=== PATIENT | female | born 1950 | race Caucasian/White ===

== ENCOUNTER 2016-04-02 06:02 | Inpatient (IN) | payer OTHER, BC ==
[2016-04-02] MEDS ORDERED: IPRATROPIUM/ALBUTEROL 3 ML DEYVIAL ONE (06:15)
[2016-04-02] MEDS ORDERED: IPRATROPIUM/ALBUTEROL 3 ML DEYVIAL IH ONE (06:21)
--- NOTE | 2016-04-02 06:24 | EDPHY ---
H & P Source: Patient Exam Limitations: No limitations Time Seen by Provider: 04/02/16 06:13 HPI/ROS: HPI The patient presents with shortness of breath, cough for the last 6 days, getting progressively worse. The patient is visiting from [place] and since she arrived here she has had mild shortness of breath which she attributed to the altitude. However over the last few days she has developed progressive cough with wheezing. The cough is dry and associated with mild sore throat. She has been using her Advair and albuterol with some improvement in her symptoms. However, last night she was unable to sleep because she felt so short of breath. She is having some midsternal sharp chest pain with deep inspiration. She is staying with family friends and 2 of them have tested positive for influenza. The patient did have a flu shot this year. She says she last took prednisone for asthma about 3 weeks ago. REVIEW OF SYSTEMS Constitutional: No fever, no chills. Eyes: No discharge. ENT: No sore throat. Cardiovascular: No chest pain, no palpitations. Respiratory: See HPI Gastrointestinal: No abdominal pain, no vomiting. Genitourinary: No hematuria. Musculoskeletal: No back pain. Skin: No rashes. Neurological: No headache. PMHx: CLL, has not undergone chemotherapy yet, asthma, history of pulmonary embolism in 2010 related to an orthopedic ankle operation Soc Hx: Visiting friends from [place] PHYSICAL General Appearance: Alert, no distress Eyes: Pupils equal and round no pallor or injection ENT, Mouth: Mucous membranes moist Respiratory: Slightly tachypneic, no retractions, prolonged I to E time with slight wheeze Cardiovascular: Regular rate and rhythm Gastrointestinal: Abdomen is soft and non-tender, no masses, bowel sounds normal Neurological: A&O, moves all extremities Skin: Warm and dry, no rashes Musculoskeletal: Neck is supple non tender Extremities: symmetrical, full range of motion Psychiatric: Patient is oriented X 3, there is no agitation (Chitra Dubois) Constitutional: Initial Vital Signs O2 Sat (%) 98 04/02/16 06:22 O2 Delivery Mode Nasal Cannula O2 (L/minute) 3 Allergies/Adverse Reactions: clindamycin Allergy (Verified 04/02/16 06:22) Penicillins Allergy (Verified 04/02/16 06:22) Sulfa (Sulfonamide Antibiotics) Allergy (Verified 04/02/16 06:22) Home Medications: Medication Instructions Recorded Advair 250/50 (*) 1 puffs IH BID 04/02/16 Aspirin EC [Aspirin EC 81 mg (*)] 81 mg PO DAILY 04/02/16 Azelastine HCl [Azelastine HCl] 2 sprays EACHNARE BID PRN 04/02/16 Cholecalciferol Vit D3 [Vitamin D3 2,000 units PO DAILY 04/02/16 (*)] Cyanocobalamin [Vitamin B12 (*)] 2,000 mcg PO DAILY 04/02/16 Fluticasone Nasal [Flonase Nasal 2 sprays NASAL DAILY PRN 04/02/16 [place] (RX)] Folic Acid [Folic Acid 1 MG (*)] 1 mg PO BID 04/02/16 [place]/Supplements -Info Only 1 ea PO DAILY 04/02/16 Levothyroxine [Synthroid 100 mcg 100 mcg PO DAILY06 04/02/16 (*)] Liothyronine Sodium [LIOTHYRONINE 5 mcg PO DAILY 04/02/16 SODIUM] Loratadine [Claritin 10 mg] 10 mg PO DAILY PRN 04/02/16 Losartan/Hydrochlorothiazide 1 each PO DAILY 04/02/16 [Losartan-Hctz 50-12.5 mg Tab] Montelukast Sodium [Singulair 10 10 mg PO DAILY@1800 04/02/16 mg (*)] Pantoprazole Sodium [Protonix 40mg 40 mg PO DAILY@1730 04/02/16 (*)] Sertraline HCl [Zoloft 100mg (*)] 200 mg PO DAILY 04/02/16 Simvastatin [Zocor] 20 mg PO HS 04/02/16 Tretinoin/Emollient Base 1 luli TP DAILY 04/02/16 [Tretinoin 0.05% Emollient Crm] Medical Decision Making - Diagnostics EKG Interpretation: 12-lead EKG interpreted by me; official reading is in trace master. My interpretation is sinus at rate of 105 with nonspecific T-wave flattening. (Jos Linda) Imaging: Chest x-ray viewed independently by myself at 7:20 a.m. shows bronchitis changes otherwise negative. No pneumothorax or infiltrate or pneumonia. CT pulmonary arteriography reviewed with Dr. Dereje Leary at 9:14 a.m. shows CLL but no evidence of pulmonary thromboembolic disease. (Jos Linda) ED Course/Re-evaluation: 7:00 a.m.- The patient is currently receiving albuterol nebulized solution. She is feeling better now with this. Labs will be checked including influenza screen, I have also ordered a chest x-ray. She will be signed out to the oncoming provider Dr. Jos Linda. (Chitra Dubois) Care of the patient was assumed at 7:00 a.m.. She is examined at this time. Plan per Dr. Dubois is medical evaluation in ED including RAD treatment, testing including ddimer and influenza and chest x-ray, disposition depending on results and workup and response to treatment. Physical exam performed by myself at this time: She has bilateral wheezes and crackles greater on the right than the left. She is tachypneic and her breathing appears mildly labored. Her past medical history is personally reviewed by myself and significantly includes CLL with chemotherapy starting next week, history of pulmonary embolism in 2009, asthma diagnosed 2 years ago. She has never been a smoker. Social history includes a who was diagnosed 2 days ago with influenza and a daughter who was diagnosed 4 days ago with influenza. Plan for steroids, multiple nebulizer treatments, supplemental oxygen. She is noted to be significantly hypoxemic on arrival with oxygen saturations in the 80s. Chest x-ray and influenza testing, D-dimer. Vital signs reviewed by myself at 6 20 5:00 a.m. temperature 37.2degrees, heart rate 100, respiratory rate 22, blood pressure 121/72, oxygen saturation 85% on ambient air. 743: Influenza A positive, still requiring nasal cannula oxygen to keep her saturations in the 90s. Continued albuterol nebulizer, oral dose Tamiflu 75 mg. Results discussed with the patient and family. Admit for hypoxia. 755: D-dimer 2.3, history of pulmonary embolism, CT angiography discussed and consented. 804: Discussed with Venkatesh Raymundo who will admit, EACU if CT PE negative. Multiple albuterol nebulizers continued in emergency department. The patient does have SIRS criteria but she does not have sepsis, as she does not have evidence or suspicion by myself for an acute bacterial infection. Broad-spectrum antibiotics and blood cultures not clinically indicated for influenza and reactive airway disease. (Jos Linda) Differential Diagnosis: This is a 66-year-old female with asthma, CLL, remote history of pulmonary embolism non anticoagulation currently who presents from home with cough, shortness of breath, wheeze. Differential diagnosis includes asthma with exacerbation, viral URI, influenza, pneumonia, bronchitis, less likely pulmonary embolism. (Chitra Dubois) Critical Care Time: Critical care time spent by me, Dr. Linda, exclusively with the care of this patient was 30 minutes, exclusive of PA or RETAIL BUSINESS DEVELOPMENT MANAGER time and exclusive of separate procedures. The organ system at risk was pulmonary and I ordered nebulized albuterol treatments, oral Tamiflu, discussion with outside solar sales consultant hospitalist, supplemental oxygen; to stabilize the patient and prevent worsening of the patient's condition. (Jos Linda) - Data Points Laboratory Results: Laboratory Results 04/02/16 07:00 04/02/16 07:10 04/02/16 04/02/16 07:10 07:00 WBC 11.16 H 10^3/uL (3.80-9.50) RBC 3.32 L 10^6/uL (4.18-5.33) Hgb 9.8 L g/dL (12.6-16.3) Hct 32.2 L % (38.0-47.0) MCV 97.0 fL (81.5-99.8) MCH 29.5 pg (27.9-34.1) MCHC 30.4 L g/dL (32.4-36.7) RDW 20.2 H % (11.5-15.2) Plt Count 102 L 10^3/uL (150-400) MPV 11.0 fL (8.7-11.7) Neut % (Auto) 11.2 L % (39.3-74.2) Lymph % (Auto) 83.5 H % (15.0-45.0) O'Brien % (Auto) 3.1 L % (4.5-13.0) Eos % (Auto) 1.6 % (0.6-7.6) Baso % (Auto) 0.3 % (0.3-1.7) Nucleat RBC Rel Count 0.3 H % (0.0-0.2) Absolute Neuts (auto) 1.25 L 10^3/uL (1.70-6.50) Absolute Lymphs (auto) 9.32 H 10^3/uL (1.00-3.00) Absolute Monos (auto) 0.35 10^3/uL (0.30-0.80) Absolute Eos (auto) 0.18 10^3/uL (0.03-0.40) Absolute Basos (auto) 0.03 10^3/uL (0.02-0.10) Absolute Nucleated RBC 0.03 H 10^3/uL (0-0.01) Immature Gran % 0.3 % (0.0-1.1) Seg Neutrophils % 8 % Band Neutrophils % 1 % Lymphocytes % 89 % Monocytes % 1 % Eosinophils % 1 % Immature Gran # 0.03 10^3/uL (0.00-0.10) Absolute Seg Neuts 0.89 L 10^/uL (1.70-6.50) Absolute Band Neuts 0.11 10^3/uL (0.00-0.70) Absolute Lymphocytes 9.93 H 10^3/uL (1.00-3.00) Absolute Monocytes 0.11 L 10^3/uL (0.30-0.80) Absolute Eosinophils 0.11 10^3/uL (0.03-0.40) Atypical Lymphocytes 3+ H Platelet Estimate DECREASED L (ADEQ) Polychromasia 1+ H Elliptocytes 1+ H Smear Review By Kyra OSORIO MD D-Dimer 2.33 H ug/mLFEU (0.00-0.50) Sodium 141 mEq/L (134-144) Potassium 3.7 mEq/L (3.5-5.2) Chloride 101 mEq/L (97-110) Carbon Dioxide 28 mEq/l (22-31) Anion Gap 12 mEq/L (8-16) BUN 11 mg/dL (7-23) Creatinine 1.0 mg/dL (0.6-1.0) Estimated GFR 55 Glucose 128 H mg/dL (70-100) Calcium 8.6 mg/dL (8.5-10.4) Total Bilirubin 0.9 mg/dL (0.1-1.4) AST 42 IU/L (14-46) ALT 32 IU/L (9-52) Alkaline Phosphatase 79 IU/L (38-126) Total Protein 6.1 L g/dL (6.3-8.2) Albumin 3.8 g/dL (3.5-5.0) Influenza Typ A,B (DFA) POSITIVE FOR FLU A H (NEGATIVE) Medications Given: Discontinued Medications Acetaminophen (Tylenol) 650 mg PO EDNOW ONE Stop: 04/02/16 08:54 Last Admin: 04/02/16 09:07 Dose: 650 mg Albuterol (Proventil Neb) 9 ml IH EDNOW ONE Stop: 04/02/16 06:54 Last Admin: 04/02/16 07:13 Dose: 9 ml Albuterol (Proventil Neb) 9 ml IH EDNOW ONE Stop: 04/02/16 07:43 Last Admin: 04/02/16 08:10 Dose: 9 ml Albuterol/Ipratropium (Duoneb) 3 ml IH EDNOW ONE Stop: 04/02/16 06:22 Last Admin: 04/02/16 06:28 Dose: 3 ml Sodium Chloride (Ns) 1,000 mls @ 0 mls/hr IV ONCE ONE PRN Reason: Wide Open Stop: 04/02/16 08:53 Last Admin: 04/02/16 09:06 Dose: 1,000 mls Oseltamivir Phosphate (Tamiflu) 75 mg PO EDNOW ONE Stop: 04/02/16 07:43 Last Admin: 04/02/16 08:11 Dose: 75 mg Prednisone (Prednisone) 60 mg PO EDNOW ONE Stop: 04/02/16 06:44 Last Admin: 04/02/16 06:45 Dose: 60 mg Departure - Departure Disposition: [facility] Acute Clinical Impression: Exacerbation of asthma, Influenza, Hypoxemia Condition: Fair
[2016-04-02] MEDS ORDERED: ALBUTEROL 3 ML DEYVIAL ONE (06:35)
[2016-04-02] MEDS ORDERED: predniSONE 20 MG TAB PO ONE (06:43)
[2016-04-02] MEDS ORDERED: ALBUTEROL 3 ML DEYVIAL IH ONE ×2 (06:53→07:42)
[2016-04-02 07:16] LABS: % IMMATURE GRANULYOCYTES 0.3 % (0.0-1.1); ABSOLUTE IMMATURE GRANULOCYTES 0.03 10^3/uL (0.00-0.10); ABSOLUTE NRBC COUNT 0.03 10^3/uL (0-0.01); ADD DIFF? NO; ADD MORPH? YES; ADD SCAN? YES; ATYPICAL LYMPHOCYTE FLAG 0 (0-99); FRAGMENT RBC FLAG 20 (0-99); HEMATOCRIT 32.2 % (38.0-47.0); HEMOGLOBIN 9.8 g/dL (12.6-16.3); LEFT SHIFT FLG 0 (0-99); LIPEMIA HEMOLYSIS FLAG 80 (0-99); MEAN CELL HEMOGLOBIN 29.5 pg (27.9-34.1); MEAN CELL HEMOGLOBIN CONCENTR. 30.4 g/dL (32.4-36.7); NRBC-AUTO% 0.3 % (0.0-0.2); PLATELET CLUMPS FLAG 0 (0-99); PLATELET COUNT 102 10^3/uL (150-400); RED BLOOD CELL COUNT 3.32 10^6/uL (4.18-5.33)
[2016-04-02 07:23] LABS: RED CELL DISTRIBUTION WIDTH 20.2 % (11.5-15.2)
--- NOTE | 2016-04-02 07:37 | CPEKG ---
Heart Rate: 105 RR Interval: 571 P-R Interval: 172 QRSD Interval: 88 QT Interval: 324 QTC Interval: 429 P [place]: 16 QRS [place]: 65 T Wave [place]: -2 EKG Severity - BORDERLINE ECG - EKG Impression: SINUS TACHYCARDIA EKG Impression: BORDERLINE T ABNORMALITIES, DIFFUSE LEADS Electronically Signed By: Jos Linda 02-Apr-2016 07:36:56
[2016-04-02 07:39] LABS: ALANINE AMINOTRANSFERASE 32 IU/L (9-52); ALBUMIN 3.8 g/dL (3.5-5.0); ALKALINE PHOSPHATASE 79 IU/L (38-126); ANION GAP 12 mEq/L (8-16); ASPARTATE AMINOTRANSFERASE 42 IU/L (14-46); BILIRUBIN,TOTAL 0.9 mg/dL (0.1-1.4); CALCIUM 8.6 mg/dL (8.5-10.4); CARBON DIOXIDE 28 mEq/l (22-31); CHLORIDE 101 mEq/L (97-110); GLOMERULAR FILTRATION RATE 55; GLUCOSE 128 mg/dL (70-100); POTASSIUM 3.7 mEq/L (3.5-5.2); SODIUM 141 mEq/L (134-144); TOTAL PROTEIN 6.1 g/dL (6.3-8.2)
[2016-04-02] MEDS ORDERED: OSELTAMIVIR PHOSPHATE 75 MG CAP PO ONE (07:42)
[2016-04-02 07:44] LABS: SCAN POSITIVE
[2016-04-02 07:55] LABS: PLATELET ESTIMATE DECREASED (ADEQ)
[2016-04-02 07:56] LABS: ELLIPTOCYTES 1+; POLYCHROMASIA 1+
[2016-04-02] MEDS ORDERED: IOPAMIDOL (ISOVUE 370) 75 ML BTL IV ONE ×2 (08:06→08:39)
--- NOTE | 2016-04-02 08:15 | DX ---
PA and Lateral Chest History: Cough in a 66-year-old female; no previous studies are available for comparison area Findings: The heart and mediastinal contours are normal. Pulmonary vascularity is normal. There is c entral peribronchial thickening. There are no alveolar opacities seen to suggest pneumonia. Impression: Findings consistent with airways disease are noted.
[2016-04-02] MEDS ORDERED: NS 1,000 ML IV ONE (08:52)
[2016-04-02] MEDS ORDERED: ACETAMINOPHEN 325 MG TAB PO ONE (08:53)
--- NOTE | 2016-04-02 10:23 | CT ---
CT Pulmonary Angiogram Clinical Indications: Shortness of breath in a 66-year-old female with a history of previous PE, an elevated D-dimer and a diagnosis of CLL. Technique: Thinly collimated multidetector helical CT imaging was performed through the chest follow ing intravenous contrast administration. The initial bolus timing resulted in a nondiagnostic study s o repeat contrast administration and rescan was performed. Total contrast dose is 147 mL of Isovue-37 0. The images were obtained at 4 mm thickness and reconstructed at 1.5 mm thickness. Sagittal and cor onal reconstructions were performed. The examination is reviewed on the workstation by the interpreti ng physician at multiple window/level settings. Dose reduction techniques were utilized. Findings: Chest: No focal pulmonary consolidation is identified. There is a 5 mm noncalcified pulmonary nodule identified in the right upper lobe on image 100 of series 11. Heart size is normal. No pericardial or pleural effusions are seen. Enlarged hilar and mediastinal lymph nodes are seen and there is also axillary adenopathy consistent with the diagnosis of CLL. Splenomegaly is noted. Adenopathy is seen i n the retroperitoneum in the upper abdomen. CT Pulmonary Angiogram: The pulmonary arterial system is well opacified. No intraluminal filling d efects are seen to suggest acute or chronic thrombopulmonary embolic disease. No vascular malformatio ns are seen. The thoracic aorta has a normal contour without evidence of aneurysm or dissection. Impression: 1. No evidence of thrombopulmonary embolic disease. 2. 5 mm noncalcified pulmonary nodule right upper lobe. This patient has presumably had previous stud ies and these could be obtained to evaluate for stability of this probably benign nodule. 3. Adenopathy and splenomegaly consistent with the diagnosis of CLL. 4. See above report for additional findings. Results discussed with Dr. Linda from the Emergency Department at 0925 hours.
[2016-04-02] MEDS ORDERED: MAG HYDROX/AL HYDROX/SIMETH 30 ML UDCUP PO PRN (10:44)
--- NOTE | 2016-04-02 11:32 | GHP ---
[f rep st] HISTORY AND PHYSICAL DATE OF ADMISSION: 04/02/2016 CHIEF COMPLAINT: Shortness of breath. HISTORY OF PRESENT ILLNESS: A 66-year-old female with a 5 to 6-year history of reactive airway disea se without a history of tobacco use who presents with a 6-day history of increasing shortness of ed th and cough. She has also felt hot and cold, achy, and perhaps has had a fever during this period o f time. She was seen in the emergency department and found to be hypoxic on room air and wheezing. She was treated with bronchodilators, tested positive for influenza, given Tamiflu 75 mg, and persist ed with room air hypoxemia. She was thus admitted for an asthma exacerbation and influenza infection . She has a 5 to 6-year history of reactive airway disease which began following a pulmonary embolus th at occurred following surgery on her left foot. She also carries a diagnosis of chronic lymphocytic leukemia which has been untreated, although she is currently scheduled for chemotherapy to begin in 4 days in [place]. She denies chest pain, nausea, vomiting or diarrhea. There has been no rash. PAST MEDICAL HISTORY: 1. CLL diagnosed in 2009. No chemotherapy has been given at this time and she is scheduled to start her first dose of chemotherapy in 4 days in [place]. 2. Reactive airway disease. As noted above, this dates to approximately 2009 when she had a pulmona ry embolus. 3. Pulmonary embolus in 2009 treated with 1 year of anticoagulation. PAST SURGICAL HISTORY: Tonsillectomy at age 5, wisdom teeth removed at age 17, tubal ligation at age 39, right shoulder surgery in 2010 and 2000, left knee surgery in 2002, left foot surgeries in 2004, 2006, 2008 and 2009. Cataract removal in both eyes with new lenses in 2014. ALLERGIES: Listed to clindamycin, penicillin, sulfa drugs. REVIEW OF SYSTEMS: In general, she has been achy, feeling hot and cold, as noted above. There has b een no nausea or vomiting. No complaints of chest pain, orthopnea, or PND. She has had a cough but it has been nonproductive. She has a history of reflux and heartburn for which she takes a regular P PI medication with good relief. There is no bowel disorder or dysuria complaints. Skin is normal wi thout complaints of a recent rash. Joints she describes herself as having osteoarthritis in all of h er joints and prominently in her left foot, and says that many of her joints ache frequently without recent inflammation. SOCIAL HISTORY: She is and traveling here from [place], [place], which is a town north of [facility]. She was here visiting friends and is accompanied by her . Tobacco: None. Alcohol: Rare . Drugs: None. FAMILY HISTORY: Negative for reactive airway disease, coronary artery disease, breast cancer and col on cancer. PHYSICAL EXAMINATION: GENERAL: This is a pleasant alert female whom I am seeing on the floor. At t his time, she is feeling much improved. VITAL SIGNS: Normal except for mild sinus tachycardia. She is hypoxic on room air and has maintained adequate oxygenation on supplemental oxygen. She had a lo w-grade temperature at 99.2. HEENT: Normal. Tongue and buccal mucosa without lesions. Mucous memb ranes are moist. NECK: Supple without meningismus. LUNGS: Rhonchi and rales in the left lower lob e, rhonchi and decrease in the right lower lobe. There is no chest wall tenderness or splinting. HE ART: Singular S1 and S2. No murmur, gallop or rub. ABDOMEN: Flat. Normoactive bowel sounds. No masses, tenderness or organomegaly. EXTREMITIES: No edema, cyanosis or clubbing. PULSES: 2+ DP, P T, femoral and radials. SKIN: Without rashes. JOINTS: No inflammation, swellings or effusion. NE UROLOGIC: Oriented x3. Calm and pleasant female. Cranial nerves 2 through 12 intact to specific te sting. LABORATORY DATA: WBC elevated at 11,000, hemoglobin slightly low at 9.8, platelet count low at 102,0 00. The differential shows a low neutrophil count and a high lymphocyte count at 83.5%. Her D-dimer was 2.3. Chemistry panel is entirely normal. Serology is positive for influenza A. Chest x-ray shows prominence of pulmonary vasculature and bronchial thickening without definitive inf iltrate. Heart is of normal size. This is interpreted by me on the PACS system. ECG shows sinus ta chycardia at approximately 105. There are nonspecific ST-T wave changes diffusely without any acute changes. CTA of the chest reviewed on the PACS system by me is without signs of pulmonary embolus. ASSESSMENT: 1. Acute influenza, bronchitis and possible signs of a clinical pneumonia with rales in the left low er lobe. She has currently received 1 dose of Tamiflu 75 mg and the resulting followup doses will be reduced for renal function to 30 mg b.i.d. 2. Sepsis with leukocytosis, tachypnea, tachycardia and hypoxemia, probable infectious source is inf luenza A by throat swab. 3. Reactive airway disease both by history and currently active at this time. She is receiving bron chodilator treatments along with treatments for Tamiflu, and we will continue these. 4. Chronic lymphocytic leukemia. This has previously been without treatment. She currently shows p redominance of lymphocytes and is scheduled to begin chemotherapy in [place] soon. The chronic lymphoc ytic leukemia at this time is characterized by an anemia and a thrombocytopenia with a predominance o f lymphocytes on the white cell differential. We will follow the anemia and thrombocytopenia closely . 5. Deep venous thrombosis prophylaxis will be with SCDs and early ambulation. In addition, I will a dd Lovenox at 30 mg daily. I hope to be able to stop the Lovenox soon, but due to her prior history of a pulmonary embolus, I believe both pharmacologic and SCDs along with early ambulation is prudent. DISPOSITION: The patient has been admitted to observation. We will assess her oxygenation and funct ion within 24 hours and perhaps reevaluate. She is having a significant exacerbation of reactive air way disease secondary to her influenza infection and this may require further inpatient treatment. TIME: This admission required 65 minutes. CODE STATUS: Full, and her is POA. /[id number]/MODL
[2016-04-02] MEDS: FLUTICASONE NASAL 120 SPRAYS/16 GM MDI EACHNARE SCH ×2 (12:28→21:47)
[2016-04-02] MEDS: ASPIRIN EC 81 MG TAB PO SCH (12:29)
[2016-04-02] MEDS: SERTRALINE HCL 100 MG TAB PO SCH ×2 (12:29→12:34)
[2016-04-02] MEDS: LOSARTAN/HCTZ 50/12.5 1 TAB PO SCH ×2 (12:29→12:35)
[2016-04-02] MEDS: LIOTHYRONINE SODIUM 5 MCG TAB PO SCH (12:29)
[2016-04-02] MEDS: LEVOTHYROXINE 100 MCG TAB PO SCH (12:29)
[2016-04-02] MEDS: ALBUTEROL 3 ML DEYVIAL IH PRN (15:34)
[2016-04-02] MEDS: ACETAMINOPHEN 325 MG TAB PO PRN ×2 (15:57→23:15)
[2016-04-02] MEDS: PANTOPRAZOLE SODIUM 40 MG TAB PO SCH (15:57)
[2016-04-02] MEDS: MONTELUKAST SODIUM 10 MG TAB PO SCH (17:35)
[2016-04-02] MEDS: OSELTAMIVIR 6 MG/ML UDSYR PO SCH (17:35)
[2016-04-02] MEDS ORDERED: OSELTAMIVIR PHOSPHATE 75 MG CAP PO SCH (18:00)
[2016-04-02] MEDS ORDERED: NON-FORMULARY NEW DRUG (Simvastatin [Zocor] 20 MG) PO SCH (21:00)
[2016-04-02] MEDS: ATORVASTATIN CALCIUM 10 MG TAB PO SCH (21:12)
[2016-04-02] MEDS: FOLIC ACID 1 MG TAB PO SCH (21:12)
[2016-04-02] MEDS: D5W 1/2 NS W/ 20 KCl/L 1,000 ML IV SCH (21:12)
[2016-04-02] MEDS: CEPACOL LOZENGE PO PRN (22:08)
[2016-04-03] MEDS: ALBUTEROL 3 ML DEYVIAL IH PRN ×2 (00:22→10:01)
[2016-04-03] MEDS: CEPACOL LOZENGE PO PRN (01:48)
[2016-04-03] MEDS: GUAIFENESIN/DM 10 ML UDCUP PO PRN ×4 (01:49→22:08)
[2016-04-03] MEDS: LEVOTHYROXINE 100 MCG TAB PO SCH (04:50)
[2016-04-03] MEDS: KETOROLAC 15 MG/1 ML SDV IVP PRN ×3 (04:50→17:36)
[2016-04-03] MEDS: D5W 1/2 NS W/ 20 KCl/L 1,000 ML IV SCH ×2 (04:57→23:06)
[2016-04-03] MEDS ORDERED: predniSONE 20 MG TAB PO SCH (09:00)
[2016-04-03] MEDS: OSELTAMIVIR 6 MG/ML UDSYR PO SCH ×2 (09:37→17:37)
[2016-04-03] MEDS: CYANO/VITAMIN B12 1000 MCG TAB PO SCH (09:38)
[2016-04-03] MEDS: SERTRALINE HCL 100 MG TAB PO SCH (09:39)
[2016-04-03] MEDS: LIOTHYRONINE SODIUM 5 MCG TAB PO SCH (09:39)
[2016-04-03] MEDS: ASPIRIN EC 81 MG TAB PO SCH (09:40)
[2016-04-03] MEDS: CHOLECALCIFEROL VIT D3 1,000 UNITS TAB PO SCH (09:40)
[2016-04-03] MEDS: LOSARTAN/HCTZ 50/12.5 1 TAB PO SCH (09:40)
[2016-04-03] MEDS: FOLIC ACID 1 MG TAB PO SCH ×2 (09:40→21:34)
[2016-04-03] MEDS: [UNRECOGNIZED DRUG - OTHER] TP SCH (09:41)
[2016-04-03] MEDS: FLUTICASONE NASAL 120 SPRAYS/16 GM MDI EACHNARE SCH ×2 (09:41→22:13)
[2016-04-03] MEDS: TRETINOIN TP SCH (09:41)
[2016-04-03] MEDS: ACETAMINOPHEN 325 MG TAB PO PRN ×2 (11:05→17:37)
[2016-04-03] MEDS ORDERED: ALBUTEROL 3 ML DEYVIAL IH PRN (12:38)
--- NOTE | 2016-04-03 15:05 | HOSPPROG ---
Hospitalist Progress Note Assessment/Plan: 66-year-old female admitted with shortness of breath wheezing and influenza positive throat swab. She is currently under treatment with Tamiflu and bronchodilators along with steroids. She continues to be hypoxic on room air to keep neck and with some wheezing. -acute influenza bronchitis and possible pneumonia -acute respiratory failure with hypoxemia, hypoxemia persistent on room air and continues to require supplemental oxygen -sepsis secondary to influenza infection with tachypnea tachycardia and positive flu swab -history of reactive airway disease -history of CLL untreated and scheduled for to begin treatment. Plan: Patient will be transferred to a [facility] floor and we will continue her pulmonary treatment antibiotics bronchodilators and steroids. She is slowly improving. I have discussed the plan with her Alfonso and with the patient for approximately 30 minutes. Subjective: Continues to feel weak short of breath and frequent coughing. No chest pain abdominal pain nausea or vomiting her appetite is decreased but she continues to eat. Objective: Vital Signs Temp Pulse Resp BP Pulse Ox 36.9 C 98 20 142/70 H 83 L 04/03/16 08:00 04/03/16 11:21 04/03/16 11:21 04/03/16 09:40 04/03/16 11:21 - Time Spent With Patient Time Spent with Patient: greater than 35 minutes Time Spent with Patient: Greater than 35 minutes spent on this patients care, greater than 50% of time spent counseling, educating, and coordinating care regarding the above mentioned plan. - Physical Exam Constitutional: uncomfortable Eyes: PERRL Ears, Nose, Mouth, Throat: moist mucous membranes, hearing normal Cardiovascular: regular rate and rhythym, systolic murmur, tachycardia, other ( JVD is normal. There is no peripheral edema.) Respiratory: inspiratory crackles, bronchial breath sounds, respiratory distress , rhonchi Gastrointestinal: normoactive bowel sounds, soft, non-tender abdomen Genitourinary: no bladder fullness Skin: warm Musculoskeletal: generalized weakness Neurologic: AAOx3, CN II-XII Intact Psychiatric: interacting appropriately ICD10 Worksheet Patient Problems: Problems Problem Status Diagnosed Exacerbation of asthma Acute Hypoxemia Acute Influenza Acute
[2016-04-03] MEDS: ALBUTEROL 3 ML DEYVIAL IH SCH ×2 (17:02→20:36)
[2016-04-03] MEDS: PANTOPRAZOLE SODIUM 40 MG TAB PO SCH (17:37)
[2016-04-03] MEDS: MONTELUKAST SODIUM 10 MG TAB PO SCH (17:52)
[2016-04-03] MEDS ORDERED: OXYMETAZOLINE 30 ML NASAL SPRAY EACHNARE PRN (20:57)
[2016-04-03] MEDS ORDERED: ZOLPIDEM TARTRATE 5 MG TAB PO PRN (20:57)
[2016-04-03] MEDS: ATORVASTATIN CALCIUM 10 MG TAB PO SCH (21:34)
[2016-04-03] MEDS: ONDANSETRON DISINTEGRATING 4 MG TAB PO PRN (21:38)
[2016-04-03] MEDS ORDERED: PROMETHAZINE HCL 25 MG/ML INJ IVP ONE (23:00)
[2016-04-03] MEDS ORDERED: HYDROCODONE/APAP 5/325 TAB PO ONE (23:00)
[2016-04-04] MEDS: ACETAMINOPHEN 325 MG TAB PO PRN ×2 (00:38→08:04)
[2016-04-04 05:34] LABS: ABSOLUTE NRBC COUNT 0.03 10^3/uL (0-0.01); ADD MORPH? YES; ADD SCAN? YES; ATYPICAL LYMPHOCYTE FLAG 20 (0-99); FRAGMENT RBC FLAG 0 (0-99); HEMATOCRIT 28.3 % (38.0-47.0); HEMOGLOBIN 8.5 g/dL (12.6-16.3); LEFT SHIFT FLG 20 (0-99); LIPEMIA HEMOLYSIS FLAG 80 (0-99); MEAN CELL HEMOGLOBIN 29.5 pg (27.9-34.1); MEAN CELL VOLUME 98.3 fL (81.5-99.8); MEAN PLATELET VOLUME 10.1 fL (8.7-11.7); NRBC-AUTO% 0.1 % (0.0-0.2); PLATELET CLUMPS FLAG 0 (0-99); PLATELET COUNT 83 10^3/uL (150-400); RED BLOOD CELL COUNT 2.88 10^6/uL (4.18-5.33)
[2016-04-04 05:39] LABS: BASE EXCESS -5.4 mEq/L (-2.5-2.5); BICARBONATE 20 mEq/L (22-26); MEASURED OXYGEN SATURATION 93 % (92-95); PCO2 39 mmHg (34-38); PO2 77 mmHg (65-75); TCO2 21 mEq/L (23-27)
[2016-04-04 05:45] LABS: RED CELL DISTRIBUTION WIDTH 20.1 % (11.5-15.2)
[2016-04-04 05:48] LABS: ANION GAP 10 mEq/L (8-16); CALCIUM 7.4 mg/dL (8.5-10.4); CARBON DIOXIDE 22 mEq/l (22-31); CHLORIDE 108 mEq/L (97-110); CREATININE 0.9 mg/dL (0.6-1.0); GLOMERULAR FILTRATION RATE > 60; GLUCOSE 110 mg/dL (70-100); SODIUM 140 mEq/L (134-144)
[2016-04-04] MEDS: LEVOTHYROXINE 100 MCG TAB PO SCH (05:49)
[2016-04-04] MEDS ORDERED: methylPREDNISolone SOD SUCC 125 MG/2 ML VIAL IVP SCH (06:00)
[2016-04-04 06:11] LABS: ADD DIFF? YES; SCAN POSITIVE
[2016-04-04 06:14] LABS: PLATELET ESTIMATE DECREASED (ADEQ)
[2016-04-04 06:15] LABS: ELLIPTOCYTES 1+; HYPOCHROMIA 1+; POLYCHROMASIA 1+
[2016-04-04] MEDS: ALBUTEROL 3 ML DEYVIAL IH SCH ×4 (06:15→21:01)
[2016-04-04] MEDS: CHOLECALCIFEROL VIT D3 1,000 UNITS TAB PO SCH (08:02)
[2016-04-04] MEDS: ASPIRIN EC 81 MG TAB PO SCH (08:03)
[2016-04-04] MEDS: SERTRALINE HCL 100 MG TAB PO SCH (08:03)
[2016-04-04] MEDS: CYANO/VITAMIN B12 1000 MCG TAB PO SCH (08:05)
[2016-04-04] MEDS: FOLIC ACID 1 MG TAB PO SCH ×2 (08:06→21:01)
[2016-04-04] MEDS: LOSARTAN/HCTZ 50/12.5 1 TAB PO SCH (08:06)
--- NOTE | 2016-04-04 08:07 | DX ---
Portable Chest, 00:29 Clinical Indications: Fever, increasing O2 demands, CLL Comparison: April 02, 2016 Findings: The patient is newly rotated toward the right. Oxygen tubing overlies the chest. There is no obvious focal consolidation, infiltrate or pleural effusion. Stable left upper quadrant soft tissu e density suggests splenomegaly. Impression: No pneumonia identified.
--- NOTE | 2016-04-04 08:26 | CPEKG ---
Heart Rate: 98 RR Interval: 612 P-R Interval: 164 QRSD Interval: 90 QT Interval: 316 QTC Interval: 404 P [place]: 52 QRS [place]: 9 T Wave [place]: 38 EKG Severity - NORMAL ECG - EKG Impression: SINUS RHYTHM Electronically Signed By: Zoltan Eid 05-Apr-2016 13:44:14
[2016-04-04] MEDS: OSELTAMIVIR 6 MG/ML UDSYR PO SCH (09:00)
[2016-04-04] MEDS: [UNRECOGNIZED DRUG - OTHER] TP SCH (09:02)
[2016-04-04] MEDS: TRETINOIN TP SCH (09:02)
[2016-04-04] MEDS ORDERED: OSELTAMIVIR 6 MG/ML UDSYR PO ONE (09:30)
[2016-04-04] MEDS: LIOTHYRONINE SODIUM 5 MCG TAB PO SCH (09:31)
[2016-04-04] MEDS: AZITHROMYCIN IV 500 MG in D5W 250 ML IV SCH (09:31)
[2016-04-04] MEDS: FLUTICASONE NASAL 120 SPRAYS/16 GM MDI EACHNARE SCH ×2 (09:45→21:01)
[2016-04-04] MEDS: methylPREDNISolone SOD SUCC 40 MG/ML VIAL IVP SCH ×3 (13:42→23:37)
[2016-04-04] MEDS: KETOROLAC 15 MG/1 ML SDV IVP PRN (14:18)
--- NOTE | 2016-04-04 14:33 | GCON ---
[f rep st] CONSULTATION [employer] OPERATIONS AGENT CONSULTATION DATE OF CONSULTATION: 04/04/2016 REASON FOR ADMISSION: 1. Respiratory failure. 2. Reactive airways disease. 3. Chronic lymphocytic leukemia. 4. Influenza. HISTORY OF PRESENT ILLNESS: The patient is a 66-year-old white female with a past medical history of CLL and reactive airway disease with pulmonary embolus in 2009. She presents with complaints of kim athlessness. She is visiting [place] from [place], [place]. She began feeling hot, achy, as well as h aving fever. She was seen in the emergency room, tested positive for influenza, and started on Tamif karla. She was admitted secondary to hypoxemia. She was initially admitted to the floor, was subsequen tly transferred to the Intensive Care Unit today for worsening breathlessness. She feels markedly be tter since being transferred. PAST MEDICAL HISTORY: Significant for CLL, reactive airways disease, pulmonary embolus. ALLERGIES: Clindamycin, penicillin, sulfa. SOCIAL HISTORY: A lifelong never-smoker. She drinks 3 glasses of wine per day. She is . 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 She has lived in [place] most of her life. PAST SURGICAL HISTORY: She has had foot surgeries, knee surgery, shoulder surgery, cataract removal, tubal ligation, tonsillectomy. PHYSICAL EXAM: VITAL SIGNS: Blood pressure is122/58, pulse is 99, respirations 25, temperature 39.2 , oxygen saturation 96% on 8 L OxyMask. GENERAL: She is a mildly overweight, but very pleasant, 66- year-old white female, who is resting comfortably on supplemental oxygen. HEENT: Eyes are PERRL, EO LA. Throat shows no erythema or tonsillar hypertrophy. NECK: Supple. No cervical adenopathy. HEA RT: Regular rate and rhythm with a 2/6 systolic murmur at the left sternal border without radiation. LUNGS: Show few scattered rhonchi, but otherwise clear. ABDOMEN: Soft, nontender. Bowel sounds are present in all 4 quadrants. EXTREMITIES: Show no clubbing, cyanosis or edema. LABORATORIES: White count is 21,000, hemoglobin 8.5, hematocrit 28, platelet count is 83. Sodium 140, potassium 5.0, chloride 108, CO2 of 22, BUN is 18, creatinine 0.9, glucose is 110. Serology is positive for influenza A. Arterial blood gas: pH 7.32, pCO2 of 39, PO2 77, bicarb 21, oxygen saturation 93%. Chest x-ray dated 04/04/[address] angiogram of the chest shows no evidence of PE. There is a 5 mm noncalcified pulmonary nodule in the right upper lobe. Lungs are otherwise clear. IMPRESSION: 1. Influenza A. 2. Reactive airways disease/asthma with acute exacerbation. 3. History of chronic lymphocytic leukemia. 4. History of pulmonary embolus. RECOMMENDATIONS: 1. Agree with current bronchodilator treatment. 2. Agree with current IV steroids for anti-inflammatory. 3. Wean FiO2 as tolerated. 4. DVT and PE prophylaxis. 5. Stress ulcer prophylaxis. 6. Out of bed to chair. 7. Early ambulation. Thank you very much. /[id number]/MODL
--- NOTE | 2016-04-04 16:01 | HOSPPROG ---
Hospitalist Progress Note Assessment/Plan: 66-year-old female admitted with shortness of breath wheezing and influenza positive throat swab. She is currently under treatment with Tamiflu and bronchodilators along with steroids. She continues to be hypoxic on room air. During the last 12 hours the patient became more short of breath and more hypoxic and was transferred to the step-down unit. Review of a new chest x-ray shows more bronchial markings consistent with acute bronchitis. Case has been discussed with Pulmonary and Pulmonary has consulted. We added IV steroids and azithromycin. -acute influenza bronchitis and possible pneumonia. Worsening hypoxemia in the last 12 hours with the addition now of IV steroids and azithromycin. -acute respiratory failure with hypoxemia, hypoxemia persistent on room air and continues to require supplemental oxygen -influenza a infection currently under treatment with Tamiflu. -sepsis secondary to influenza infection with tachypnea tachycardia and positive flu swab -history of reactive airway disease -history of CLL untreated and scheduled for to begin treatment. Plan: Patient has been transferred to the step-down unit. She is improving with supplemental oxygen and increase in bronchodilators and azithromycin. Subjective: Patient is short of breath and mildly anxious. She denies chest pain, but admits to 2 episodes of vomiting yesterday evening. She has no abdominal pain at this time Objective: Vital Signs Temp Pulse Resp BP Pulse Ox 39.2 C H 99 25 H 122/58 H 96 04/04/16 12:00 04/04/16 12:00 04/04/16 12:00 04/04/16 12:00 04/04/16 12:00 Laboratory Results 04/04/16 05:20 04/04/16 05:20 04/03/16 04/04/16 04/05/16 05:59 05:59 05:59 Intake Total 758 Balance 758 - Time Spent With Patient Time Spent with Patient: greater than 35 minutes Time Spent with Patient: Greater than 35 minutes spent on this patients care, greater than 50% of time spent counseling, educating, and coordinating care regarding the above mentioned plan. - Physical Exam Constitutional: other (Acutely ill appearing and short of breath.) Eyes: PERRL, anicteric sclera Ears, Nose, Mouth, Throat: moist mucous membranes, hearing normal Cardiovascular: regular rate and rhythym, no murmur, rub, or gallop, tachycardia Respiratory: expiratory wheeze, bronchial breath sounds, respiratory distress, rhonchi Gastrointestinal: normoactive bowel sounds, soft, non-tender abdomen, no palpable masses Genitourinary: no bladder fullness Skin: warm Musculoskeletal: generalized weakness Neurologic: AAOx3, CN II-XII Intact Psychiatric: anxious ICD10 Worksheet Patient Problems: Problems Problem Status Diagnosed Exacerbation of asthma Acute Hypoxemia Acute Influenza Acute
[2016-04-04] MEDS: OSELTAMIVIR PHOSPHATE 75 MG CAP PO SCH (17:15)
[2016-04-04] MEDS: PANTOPRAZOLE SODIUM 40 MG TAB PO SCH (17:15)
[2016-04-04] MEDS: MONTELUKAST SODIUM 10 MG TAB PO SCH (17:15)
[2016-04-04] MEDS: ATORVASTATIN CALCIUM 10 MG TAB PO SCH (21:01)
[2016-04-05] MEDS: KETOROLAC 15 MG/1 ML SDV IVP PRN ×3 (01:52→20:14)
[2016-04-05] MEDS: ALBUTEROL 3 ML DEYVIAL IH SCH ×4 (05:58→22:15)
[2016-04-05] MEDS: LEVOTHYROXINE 100 MCG TAB PO SCH (06:14)
[2016-04-05] MEDS: methylPREDNISolone SOD SUCC 40 MG/ML VIAL IVP SCH ×4 (06:14→23:54)
--- NOTE | 2016-04-05 08:34 | PDINTPN ---
E Commerce Marketing Manager Progress Note Assessment/Plan: Assessment: * Influenza A-cont tamiflu * RAD/Asthma-improved -cont nebs and steroids * H/O PE Plan: Start lovenox Okay for med surg Subjective: Feels much better. Objective: Vital Signs Temp Pulse Resp BP Pulse Ox 36.8 C 80 20 114/73 98 04/05/16 00:00 04/05/16 06:08 04/05/16 06:08 04/05/16 04:00 04/05/16 04:00 Laboratory Results 04/05/16 06:00 04/05/16 06:00 04/04/16 04/05/16 04/06/16 05:59 05:59 05:59 Intake Total 758 6433 Output Total 352 Balance 750 1466 Physical Exam - Physical Exam General Appearance: alert, no apparent distress EENT: PERRL/EOMI, normal ENT inspection, pharynx normal, TMs normal Neck: non-tender, full range of motion, supple, normal inspection Respiratory: prolonged expiration, No respiratory distress, No wheezing Cardiac/Chest: normal peripheral pulses, regular rate, rhythm Abdomen: normal bowel sounds, non-tender, soft Pelvic Exam: deferred Rectal: deferred Skin: normal color, warm/dry Extremities: normal range of motion, non-tender, normal inspection, normal capillary refill ICD10 Worksheet Patient Problems: Problems Problem Status Diagnosed Exacerbation of asthma Acute Hypoxemia Acute Influenza Acute
[2016-04-05 09:19] LABS: % IMMATURE GRANULYOCYTES 0.2 % (0.0-1.1); ABSOLUTE IMMATURE GRANULOCYTES 0.06 10^3/uL (0.00-0.10); ADD DIFF? NO; ADD MORPH? YES; ADD SCAN? YES; ATYPICAL LYMPHOCYTE FLAG 20 (0-99); FRAGMENT RBC FLAG 20 (0-99); HEMATOCRIT 24.6 % (38.0-47.0); HEMOGLOBIN 7.6 g/dL (12.6-16.3); LEFT SHIFT FLG 50 (0-99); LIPEMIA HEMOLYSIS FLAG 80 (0-99); MEAN CELL HEMOGLOBIN 29.7 pg (27.9-34.1); MEAN CELL HEMOGLOBIN CONCENTR. 30.9 g/dL (32.4-36.7); MEAN CELL VOLUME 96.1 fL (81.5-99.8); MEAN PLATELET VOLUME 10.7 fL (8.7-11.7); PLATELET CLUMPS FLAG 10 (0-99); PLATELET COUNT 60 10^3/uL (150-400); RED BLOOD CELL COUNT 2.56 10^6/uL (4.18-5.33)
[2016-04-05 09:26] LABS: RED CELL DISTRIBUTION WIDTH 20.1 % (11.5-15.2)
[2016-04-05] MEDS: AZITHROMYCIN IV 500 MG in D5W 250 ML IV SCH (09:34)
[2016-04-05] MEDS: OSELTAMIVIR PHOSPHATE 75 MG CAP PO SCH ×2 (09:35→18:11)
[2016-04-05] MEDS: CHOLECALCIFEROL VIT D3 1,000 UNITS TAB PO SCH (09:35)
[2016-04-05] MEDS: ASPIRIN EC 81 MG TAB PO SCH (09:35)
[2016-04-05] MEDS: CYANO/VITAMIN B12 1000 MCG TAB PO SCH (09:36)
[2016-04-05] MEDS: LIOTHYRONINE SODIUM 5 MCG TAB PO SCH (09:36)
[2016-04-05] MEDS: LOSARTAN/HCTZ 50/12.5 1 TAB PO SCH (09:36)
[2016-04-05] MEDS: FOLIC ACID 1 MG TAB PO SCH ×2 (09:36→20:14)
[2016-04-05] MEDS: FLUTICASONE NASAL 120 SPRAYS/16 GM MDI EACHNARE SCH ×2 (09:36→20:15)
[2016-04-05] MEDS: SERTRALINE HCL 100 MG TAB PO SCH (09:36)
[2016-04-05] MEDS: [UNRECOGNIZED DRUG - OTHER] TP SCH (09:37)
[2016-04-05] MEDS: TRETINOIN TP SCH (09:37)
[2016-04-05 09:39] LABS: ANION GAP 9 mEq/L (8-16); CALCIUM 7.1 mg/dL (8.5-10.4); CARBON DIOXIDE 19 mEq/l (22-31); CHLORIDE 110 mEq/L (97-110); CREATININE 0.9 mg/dL (0.6-1.0); GLOMERULAR FILTRATION RATE > 60; GLUCOSE 181 mg/dL (70-100); POTASSIUM 4.5 mEq/L (3.5-5.2); SODIUM 138 mEq/L (134-144)
[2016-04-05 09:45] LABS: SCAN POSITIVE
[2016-04-05 09:50] LABS: PLATELET ESTIMATE DECREASED (ADEQ)
[2016-04-05 09:51] LABS: ECHINOCYTES 1+; ELLIPTOCYTES 1+
[2016-04-05] MEDS: ENOXAPARIN 30 MG/0.3 ML SYR SC SCH (10:01)
--- NOTE | 2016-04-05 13:06 | HOSPPROG ---
Hospitalist Progress Note Assessment/Plan: # influenza A/possible bacterial pna - cont tamiflu/azith # RAD/bronchitis - solu-medrol/nebs/singulair # sepsis d/t above - no pressors needed # acute resp failure d/t above - improved today # CLL - has oncologist in [place]; not currently treated but planned to begin soon # worsening leukocytosis - primarily lymphs - likely d/t CLL + acute viral infection # htn: losartan/hctz # anemia/thrombocytopenia: unknown baseline - follow daily # pulm nodule - outpatient f/u # depression: zoloft # FCFT # lovenox ## chart reviewed CXR personally reviewed Subjective: per RN doing better respiratory-melton; per patient still SOB Objective: Vital Signs Temp Pulse Resp BP Pulse Ox 37.1 C 82 18 106/48 L 94 04/05/16 08:00 04/05/16 11:35 04/05/16 11:35 04/05/16 08:00 04/05/16 11:35 Laboratory Results 04/05/16 09:10 04/05/16 09:10 04/04/16 04/05/16 04/06/16 05:59 05:59 05:59 Intake Total 758 3122 Output Total 352 Balance 758 2770 - Physical Exam Constitutional: other (mild distress) Cardiovascular: regular rate and rhythym, no murmur, rub, or gallop Respiratory: other (mild resp distress; diffuse wheezes, rhonchi, no rales) Gastrointestinal: normoactive bowel sounds, soft, non-tender abdomen, no palpable masses ICD10 Worksheet Patient Problems: Problems Problem Status Diagnosed Exacerbation of asthma Acute Hypoxemia Acute Influenza Acute
[2016-04-05] MEDS: PANTOPRAZOLE SODIUM 40 MG TAB PO SCH (18:11)
[2016-04-05] MEDS: MONTELUKAST SODIUM 10 MG TAB PO SCH (18:11)
[2016-04-05] MEDS: ATORVASTATIN CALCIUM 10 MG TAB PO SCH (20:14)
[2016-04-05] MEDS: GUAIFENESIN/DM 10 ML UDCUP PO PRN (23:54)
[2016-04-06] MEDS: D5W 1/2 NS W/ 20 KCl/L 1,000 ML IV SCH (01:52)
[2016-04-06] MEDS: KETOROLAC 15 MG/1 ML SDV IVP PRN ×2 (02:19→08:04)
[2016-04-06 02:44] LABS: ADD MORPH? YES; ATYPICAL LYMPHOCYTE FLAG 40 (0-99); FRAGMENT RBC FLAG 20 (0-99); HEMATOCRIT 25.5 % (38.0-47.0); HEMOGLOBIN 7.6 g/dL (12.6-16.3); LEFT SHIFT FLG 60 (0-99); LIPEMIA HEMOLYSIS FLAG 70 (0-99); MEAN CELL HEMOGLOBIN 28.9 pg (27.9-34.1); MEAN CELL HEMOGLOBIN CONCENTR. 29.8 g/dL (32.4-36.7); MEAN PLATELET VOLUME 10.7 fL (8.7-11.7); PLATELET CLUMPS FLAG 0 (0-99); PLATELET COUNT 74 10^3/uL (150-400); RED BLOOD CELL COUNT 2.63 10^6/uL (4.18-5.33)
[2016-04-06 02:45] LABS: RED CELL DISTRIBUTION WIDTH 20.4 % (11.5-15.2)
[2016-04-06 02:46] LABS: ADD DIFF? YES
[2016-04-06 02:47] LABS: ADD SCAN? YES
[2016-04-06 03:07] LABS: ELLIPTOCYTES 1+; PLATELET ESTIMATE DECREASED (ADEQ)
[2016-04-06 03:11] LABS: SCHISTOCYTES 1+
[2016-04-06 03:28] LABS: ANION GAP 10 mEq/L (8-16); CALCIUM 7.4 mg/dL (8.5-10.4); CARBON DIOXIDE 21 mEq/l (22-31); CHLORIDE 110 mEq/L (97-110); CREATININE 0.8 mg/dL (0.6-1.0); GLOMERULAR FILTRATION RATE > 60; GLUCOSE 130 mg/dL (70-100); POTASSIUM 4.4 mEq/L (3.5-5.2); SODIUM 141 mEq/L (134-144)
[2016-04-06] MEDS: ALBUTEROL 3 ML DEYVIAL IH SCH ×4 (06:15→21:27)
[2016-04-06] MEDS: methylPREDNISolone SOD SUCC 40 MG/ML VIAL IVP SCH (06:30)
[2016-04-06] MEDS: LEVOTHYROXINE 100 MCG TAB PO SCH (06:30)
[2016-04-06] MEDS: OSELTAMIVIR PHOSPHATE 75 MG CAP PO SCH ×2 (07:52→16:53)
[2016-04-06] MEDS: ENOXAPARIN 30 MG/0.3 ML SYR SC SCH (07:52)
[2016-04-06] MEDS: CYANO/VITAMIN B12 1000 MCG TAB PO SCH (07:52)
[2016-04-06] MEDS: AZITHROMYCIN 250 MG TAB PO SCH (07:53)
[2016-04-06] MEDS: ASPIRIN EC 81 MG TAB PO SCH (07:53)
[2016-04-06] MEDS: FLUTICASONE NASAL 120 SPRAYS/16 GM MDI EACHNARE SCH ×2 (07:53→20:10)
[2016-04-06] MEDS: CHOLECALCIFEROL VIT D3 1,000 UNITS TAB PO SCH (07:53)
[2016-04-06] MEDS: [UNRECOGNIZED DRUG - OTHER] TP SCH (07:54)
[2016-04-06] MEDS: TRETINOIN TP SCH (07:54)
[2016-04-06] MEDS: LOSARTAN/HCTZ 50/12.5 1 TAB PO SCH (08:03)
[2016-04-06] MEDS: LIOTHYRONINE SODIUM 5 MCG TAB PO SCH (08:03)
[2016-04-06] MEDS: SERTRALINE HCL 100 MG TAB PO SCH (08:04)
[2016-04-06] MEDS: FOLIC ACID 1 MG TAB PO SCH ×2 (08:05→20:10)
--- NOTE | 2016-04-06 11:09 | HOSPPROG ---
Hospitalist Progress Note Assessment/Plan: # influenza A/possible bacterial pna - cont tamiflu/azith # RAD/bronchitis - solu-medrol/nebs/singulair # sepsis d/t above - no pressors needed # acute resp failure d/t above - improved today but still requiring O2 # CLL - has oncologist in [place]; not currently treated but planned to begin soon - WBC about at her reported baseline # htn: losartan/hctz # anemia/thrombocytopenia: stable; unknown baseline - follow daily # pulm nodule - outpatient f/u # depression: zoloft # FCFT # lovenox ## mod risk Subjective: breathing better; got very SOB after shower Objective: Vital Signs Temp Pulse Resp BP Pulse Ox 36.6 C 84 22 H 137/63 H 100 04/06/16 00:00 04/06/16 00:00 04/06/16 00:00 04/06/16 08:11 04/06/16 00:00 Laboratory Results 04/06/16 02:40 04/06/16 02:40 04/05/16 04/06/16 04/07/16 05:59 05:59 05:59 Intake Total 3122 3658 Output Total 352 2000 Balance 0840 1658 - Physical Exam Constitutional: uncomfortable Cardiovascular: regular rate and rhythym, no murmur, rub, or gallop, systolic murmur Respiratory: other (mild resp distress, expir wheezes, rales, rhonchi) Gastrointestinal: normoactive bowel sounds, soft, non-tender abdomen, no palpable masses ICD10 Worksheet Patient Problems: Problems Problem Status Diagnosed Exacerbation of asthma Acute Hypoxemia Acute Influenza Acute
[2016-04-06] MEDS: predniSONE 20 MG TAB PO SCH (12:42)
[2016-04-06] MEDS: HYDROCODONE/APAP 5/325 TAB PO PRN (13:34)
[2016-04-06] MEDS: GUAIFENESIN/DM 10 ML UDCUP PO PRN ×3 (16:06→23:58)
[2016-04-06] MEDS: MONTELUKAST SODIUM 10 MG TAB PO SCH (16:53)
[2016-04-06] MEDS: PANTOPRAZOLE SODIUM 40 MG TAB PO SCH (16:53)
[2016-04-06] MEDS: ATORVASTATIN CALCIUM 10 MG TAB PO SCH (20:10)
[2016-04-07] MEDS: LORazepam 0.5 MG TAB PO PRN ×2 (00:25→21:02)
[2016-04-07] MEDS: LEVOTHYROXINE 100 MCG TAB PO SCH (05:35)
[2016-04-07 05:49] LABS: ABSOLUTE NRBC COUNT 0.04 10^3/uL (0-0.01); ADD MORPH? YES; FRAGMENT RBC FLAG 20 (0-99); HEMATOCRIT 25.4 % (38.0-47.0); HEMOGLOBIN 7.5 g/dL (12.6-16.3); LEFT SHIFT FLG 20 (0-99); LIPEMIA HEMOLYSIS FLAG 70 (0-99); MEAN CELL HEMOGLOBIN CONCENTR. 29.5 g/dL (32.4-36.7); MEAN CELL VOLUME 98.1 fL (81.5-99.8); MEAN PLATELET VOLUME 11.6 fL (8.7-11.7); NRBC-AUTO% 0.1 % (0.0-0.2); PLATELET CLUMPS FLAG 0 (0-99); PLATELET COUNT 101 10^3/uL (150-400); RED BLOOD CELL COUNT 2.59 10^6/uL (4.18-5.33)
[2016-04-07 05:50] LABS: RED CELL DISTRIBUTION WIDTH 20.5 % (11.5-15.2)
[2016-04-07 05:51] LABS: ADD DIFF? YES; ATYPICAL LYMPHOCYTE FLAG 170 (0-99)
[2016-04-07 05:53] LABS: ADD SCAN? YES
[2016-04-07 06:07] LABS: ANION GAP 7 mEq/L (8-16); CALCIUM 8.1 mg/dL (8.5-10.4); CARBON DIOXIDE 22 mEq/l (22-31); CHLORIDE 113 mEq/L (97-110); CREATININE 0.9 mg/dL (0.6-1.0); GLOMERULAR FILTRATION RATE > 60; GLUCOSE 92 mg/dL (70-100); POTASSIUM 4.6 mEq/L (3.5-5.2); SODIUM 142 mEq/L (134-144)
[2016-04-07] MEDS: ALBUTEROL 3 ML DEYVIAL IH SCH ×4 (06:08→21:30)
[2016-04-07 07:06] LABS: ELLIPTOCYTES 1+; MACROCYTES 2+; PLATELET ESTIMATE DECREASED (ADEQ); SMUDGE CELLS 1+
[2016-04-07] MEDS: predniSONE 20 MG TAB PO SCH (08:50)
[2016-04-07] MEDS: ASPIRIN EC 81 MG TAB PO SCH (08:50)
[2016-04-07] MEDS: FOLIC ACID 1 MG TAB PO SCH ×2 (08:50→21:02)
[2016-04-07] MEDS: SERTRALINE HCL 100 MG TAB PO SCH (08:50)
[2016-04-07] MEDS: CYANO/VITAMIN B12 1000 MCG TAB PO SCH (08:51)
[2016-04-07] MEDS: CHOLECALCIFEROL VIT D3 1,000 UNITS TAB PO SCH (08:51)
[2016-04-07] MEDS: OSELTAMIVIR PHOSPHATE 75 MG CAP PO SCH ×2 (08:51→17:10)
[2016-04-07] MEDS: AZITHROMYCIN 250 MG TAB PO SCH (08:52)
[2016-04-07] MEDS: ENOXAPARIN 30 MG/0.3 ML SYR SC SCH (08:53)
[2016-04-07] MEDS: LOSARTAN/HCTZ 50/12.5 1 TAB PO SCH (09:06)
[2016-04-07] MEDS: LIOTHYRONINE SODIUM 5 MCG TAB PO SCH (09:06)
[2016-04-07] MEDS: GUAIFENESIN/DM 10 ML UDCUP PO PRN ×4 (09:07→21:02)
[2016-04-07] MEDS: ACETAMINOPHEN 325 MG TAB PO PRN (09:07)
[2016-04-07] MEDS: FLUTICASONE NASAL 120 SPRAYS/16 GM MDI EACHNARE SCH ×2 (09:08→21:02)
[2016-04-07] MEDS: [UNRECOGNIZED DRUG - OTHER] TP SCH (09:11)
[2016-04-07] MEDS: TRETINOIN TP SCH (09:11)
--- NOTE | 2016-04-07 12:44 | HOSPPROG ---
Hospitalist Progress Note Assessment/Plan: # influenza A/possible bacterial pna - cont tamiflu/azith - will extend tamiflu course in setting of immunocompromise # RAD/bronchitis - pred/nebs/singulair # panic attack - d/t resp distress and steroids - aativan prn # sepsis d/t above - no pressors needed # acute resp failure d/t above - off O2, still increased WOB # CLL - has oncologist in [place]; not currently treated but planned to begin soon - WBC about at her reported baseline # htn: losartan/hctz # anemia/thrombocytopenia: stable; unknown baseline - follow daily # pulm nodule - outpatient f/u # depression: zoloft # FCFT # lovenox ## mod risk Subjective: panic attack last night; breathing still labored Objective: Vital Signs Temp Pulse Resp BP Pulse Ox 36.8 C 76 22 H 128/66 H 98 04/07/16 08:00 04/07/16 08:00 04/07/16 08:00 04/07/16 08:00 04/07/16 08:00 Laboratory Results 04/07/16 04:55 04/07/16 04:55 04/06/16 04/07/16 04/08/16 05:59 05:59 05:59 Intake Total 3658 400 Output Total 1999 Balance 1658 400 - Physical Exam Constitutional: other (mild distress) Cardiovascular: regular rate and rhythym, no murmur, rub, or gallop, systolic murmur Respiratory: other (mild resp distress, increased WOB; rales, rhonchi, wheezes) ICD10 Worksheet Patient Problems: Problems Problem Status Diagnosed Exacerbation of asthma Acute Hypoxemia Acute Influenza Acute
[2016-04-07] MEDS: PANTOPRAZOLE SODIUM 40 MG TAB PO SCH (17:09)
[2016-04-07] MEDS: MONTELUKAST SODIUM 10 MG TAB PO SCH (17:10)
[2016-04-07] MEDS: ATORVASTATIN CALCIUM 10 MG TAB PO SCH (21:02)
[2016-04-08] MEDS: GUAIFENESIN/DM 10 ML UDCUP PO PRN ×3 (01:26→17:45)
[2016-04-08 05:20] LABS: ABSOLUTE NRBC COUNT 0.06 10^3/uL (0-0.01); ADD DIFF? YES; FRAGMENT RBC FLAG 20 (0-99); HEMATOCRIT 25.5 % (38.0-47.0); HEMOGLOBIN 7.5 g/dL (12.6-16.3); LEFT SHIFT FLG 20 (0-99); LIPEMIA HEMOLYSIS FLAG 70 (0-99); MEAN CELL HEMOGLOBIN 28.7 pg (27.9-34.1); MEAN CELL HEMOGLOBIN CONCENTR. 29.4 g/dL (32.4-36.7); MEAN CELL VOLUME 97.7 fL (81.5-99.8); MEAN PLATELET VOLUME 10.6 fL (8.7-11.7); NRBC-AUTO% 0.1 % (0.0-0.2); PLATELET CLUMPS FLAG 0 (0-99); PLATELET COUNT 99 10^3/uL (150-400); RED BLOOD CELL COUNT 2.61 10^6/uL (4.18-5.33)
[2016-04-08 05:27] LABS: ADD MORPH? NO; ATYPICAL LYMPHOCYTE FLAG 220 (0-99); RED CELL DISTRIBUTION WIDTH 20.4 % (11.5-15.2)
[2016-04-08 05:30] LABS: ADD SCAN? NO
[2016-04-08] MEDS: LEVOTHYROXINE 100 MCG TAB PO SCH (05:35)
[2016-04-08 05:49] LABS: ANION GAP 9 mEq/L (8-16); CALCIUM 8.2 mg/dL (8.5-10.4); CARBON DIOXIDE 22 mEq/l (22-31); CHLORIDE 111 mEq/L (97-110); CREATININE 0.8 mg/dL (0.6-1.0); GLOMERULAR FILTRATION RATE > 60; GLUCOSE 78 mg/dL (70-100); POTASSIUM 4.3 mEq/L (3.5-5.2); SODIUM 142 mEq/L (134-144)
[2016-04-08 06:11] LABS: ELLIPTOCYTES 1+; HYPOCHROMIA 1+; PLATELET ESTIMATE DECREASED (ADEQ); SMUDGE CELLS 1+
[2016-04-08] MEDS: ALBUTEROL 3 ML DEYVIAL IH SCH ×4 (06:35→21:50)
[2016-04-08] MEDS: ACETAMINOPHEN 325 MG TAB PO PRN ×2 (08:25→17:44)
[2016-04-08] MEDS: OSELTAMIVIR PHOSPHATE 75 MG CAP PO SCH ×2 (08:26→17:44)
[2016-04-08] MEDS: ASPIRIN EC 81 MG TAB PO SCH (09:51)
[2016-04-08] MEDS: predniSONE 20 MG TAB PO SCH (09:51)
[2016-04-08] MEDS: AZITHROMYCIN 250 MG TAB PO SCH (09:51)
[2016-04-08] MEDS: CHOLECALCIFEROL VIT D3 1,000 UNITS TAB PO SCH (09:52)
[2016-04-08] MEDS: LIOTHYRONINE SODIUM 5 MCG TAB PO SCH (09:52)
[2016-04-08] MEDS: FOLIC ACID 1 MG TAB PO SCH ×2 (09:53→20:36)
[2016-04-08] MEDS: CYANO/VITAMIN B12 1000 MCG TAB PO SCH (09:53)
[2016-04-08] MEDS: TRETINOIN TP SCH (09:54)
[2016-04-08] MEDS: SERTRALINE HCL 100 MG TAB PO SCH (09:54)
[2016-04-08] MEDS: [UNRECOGNIZED DRUG - OTHER] TP SCH (09:54)
[2016-04-08] MEDS: LOSARTAN/HCTZ 50/12.5 1 TAB PO SCH (09:54)
[2016-04-08] MEDS: ENOXAPARIN 40 MG/0.4 ML SYR SC SCH (09:56)
[2016-04-08] MEDS: FLUTICASONE NASAL 120 SPRAYS/16 GM MDI EACHNARE SCH ×2 (09:56→20:36)
--- NOTE | 2016-04-08 15:37 | HOSPPROG ---
Hospitalist Progress Note Assessment/Plan: 66-year-old female presents emergency room complaints of shortness of breath. This is my 1st encounter with the patient, chart reviewed pain. Patient discussed with Dr. Alfonso Shaffer. Assessment/Plan: # influenza A/possible bacterial pna - cont tamiflu/azith - will extend tamiflu course in setting of immunocompromise -encouraged ambulation and cough and deep breathe # RAD/bronchitis - pred/nebs/singulair # panic attack - d/t resp distress and steroids - ativan prn # sepsis d/t above - no pressors needed # acute resp failure d/t above - off O2, still increased WOB # CLL - has oncologist in [place]; not currently treated but planned to begin soon - WBC about at her reported baseline # htn: losartan/hctz # anemia/thrombocytopenia: stable; unknown baseline - follow daily # pulm nodule - outpatient f/u # depression: zoloft # FCFT # lovenox Subjective: Feeling better today. Still very weak and tired. Less short of breath today. Objective: Vital Signs Temp Pulse Resp BP Pulse Ox 37.3 C 76 18 113/81 H 95 04/08/16 07:15 04/08/16 10:28 04/08/16 10:28 04/08/16 07:15 04/08/16 10:28 Laboratory Results 04/08/16 04:36 04/08/16 04:36 04/07/16 04/08/16 04/09/16 05:59 05:59 05:59 Intake Total 400 240 Balance 400 240 - Physical Exam Constitutional: appears nourished, not in pain, chronically ill appearing Eyes: PERRL, anicteric sclera, EOMI Ears, Nose, Mouth, Throat: moist mucous membranes, hearing normal, ears appear normal Cardiovascular: regular rate and rhythym, No JVD, No edema Respiratory: no respiratory distress, reduced air movement, rhonchi Gastrointestinal: normoactive bowel sounds, No tenderness, No ascites Skin: warm, normal color, No erythema Musculoskeletal: no joint effusions, pain with ROM, generalized weakness Neurologic: AAOx3 Psychiatric: interacting appropriately, not anxious, not encephalopathic ICD10 Worksheet Patient Problems: Problems Problem Status Diagnosed Exacerbation of asthma Acute Hypoxemia Acute Influenza Acute
[2016-04-08] MEDS: MONTELUKAST SODIUM 10 MG TAB PO SCH (17:44)
[2016-04-08] MEDS: PANTOPRAZOLE SODIUM 40 MG TAB PO SCH (17:44)
[2016-04-08] MEDS: ATORVASTATIN CALCIUM 10 MG TAB PO SCH (20:36)
[2016-04-09] MEDS: LEVOTHYROXINE 100 MCG TAB PO SCH (05:10)
[2016-04-09] MEDS: ALBUTEROL 3 ML DEYVIAL IH SCH ×4 (06:19→21:31)
[2016-04-09] MEDS: HYDROCODONE/APAP 5/325 TAB PO PRN ×2 (07:02→20:52)
--- NOTE | 2016-04-09 07:25 | HOSPPROG ---
Hospitalist Progress Note Assessment/Plan: 66-year-old female PMH RAD, PE approximately 6 years ago after a foot surgery, CLL, presented to emergency room on 04/02 with complaints of shortness of breath , possible fever. Found to have hypoxia on RA, wheezing, positive flu. This is my 1st encounter with the patient, chart reviewed. Assessment/Plan: # influenza A/possible bacterial pna - cont tamiflu/azith - will extend tamiflu course in setting of immunocompromise -encouraged ambulation and cough and deep breathe # RAD/bronchitis - pred/nebs/singulair -will add Mucomyst for productive cough # panic attack - d/t resp distress and steroids - ativan prn # sepsis d/t above - no pressors needed # acute resp failure d/t above - off O2, still increased WOB # CLL - has oncologist in [place]; not currently treated but planned to begin soon - WBC about at her reported baseline # htn: losartan/hctz # anemia/thrombocytopenia: stable; unknown baseline - follow daily # pulm nodule - outpatient f/u # depression: zoloft # FCFT # lovenox Subjective: Continues to feel short of breath and has productive cough. No F/C. Objective: Vital Signs Temp Pulse Resp BP Pulse Ox 98.3 F 68 18 137/71 H 93 04/09/16 00:00 04/09/16 06:19 04/09/16 06:19 04/09/16 00:00 04/09/16 06:19 Laboratory Results 04/08/16 04:36 04/08/16 04:36 04/08/16 04/09/16 04/10/16 05:59 05:59 05:59 Intake Total 240 Balance 240 - Physical Exam Constitutional: appears nourished, not in pain Eyes: PERRL, anicteric sclera Ears, Nose, Mouth, Throat: moist mucous membranes Cardiovascular: regular rate and rhythym, no murmur, rub, or gallop Respiratory: reduced air movement, expiratory wheeze, inspiratory crackles, bronchial breath sounds Gastrointestinal: normoactive bowel sounds, soft, non-tender abdomen Skin: warm, normal color Neurologic: AAOx3 ICD10 Worksheet Patient Problems: Problems Problem Status Diagnosed Exacerbation of asthma Acute Hypoxemia Acute Influenza Acute
[2016-04-09 08:13] LABS: ABSOLUTE NRBC COUNT 0.03 10^3/uL (0-0.01); ADD MORPH? NO; ATYPICAL LYMPHOCYTE FLAG 60 (0-99); FRAGMENT RBC FLAG 40 (0-99); HEMATOCRIT 26.3 % (38.0-47.0); LEFT SHIFT FLG 10 (0-99); LIPEMIA HEMOLYSIS FLAG 80 (0-99); MEAN CELL HEMOGLOBIN 28.7 pg (27.9-34.1); MEAN CELL HEMOGLOBIN CONCENTR. 30.4 g/dL (32.4-36.7); MEAN CELL VOLUME 94.3 fL (81.5-99.8); MEAN PLATELET VOLUME 9.4 fL (8.7-11.7); NRBC-AUTO% 0.1 % (0.0-0.2); PLATELET CLUMPS FLAG 0 (0-99); PLATELET COUNT 111 10^3/uL (150-400); RED BLOOD CELL COUNT 2.79 10^6/uL (4.18-5.33); RED CELL DISTRIBUTION WIDTH 19.9 % (11.5-15.2)
[2016-04-09 08:45] LABS: ADD DIFF? YES
[2016-04-09] MEDS: ENOXAPARIN 40 MG/0.4 ML SYR SC SCH (09:05)
[2016-04-09] MEDS: AZITHROMYCIN 250 MG TAB PO SCH (09:06)
[2016-04-09] MEDS: ASPIRIN EC 81 MG TAB PO SCH (09:06)
[2016-04-09] MEDS: CHOLECALCIFEROL VIT D3 1,000 UNITS TAB PO SCH (09:06)
[2016-04-09] MEDS: LOSARTAN/HCTZ 50/12.5 1 TAB PO SCH (09:06)
[2016-04-09] MEDS: CYANO/VITAMIN B12 1000 MCG TAB PO SCH (09:06)
[2016-04-09] MEDS: LIOTHYRONINE SODIUM 5 MCG TAB PO SCH (09:07)
[2016-04-09] MEDS: [UNRECOGNIZED DRUG - OTHER] TP SCH (09:08)
[2016-04-09] MEDS: FOLIC ACID 1 MG TAB PO SCH ×2 (09:08→20:47)
[2016-04-09] MEDS: predniSONE 20 MG TAB PO SCH (09:08)
[2016-04-09] MEDS: SERTRALINE HCL 100 MG TAB PO SCH (09:08)
[2016-04-09] MEDS: TRETINOIN TP SCH (09:08)
[2016-04-09] MEDS: OSELTAMIVIR PHOSPHATE 75 MG CAP PO SCH ×2 (09:08→18:00)
[2016-04-09] MEDS: FLUTICASONE NASAL 120 SPRAYS/16 GM MDI EACHNARE SCH ×2 (09:12→21:36)
[2016-04-09 09:33] LABS: PLATELET ESTIMATE DECREASED (ADEQ)
[2016-04-09 09:34] LABS: SMUDGE CELLS 1+
[2016-04-09 09:37] LABS: ELLIPTOCYTES 1+; HYPOCHROMIA 1+; MACROCYTES 1+; POLYCHROMASIA 1+
[2016-04-09] MEDS: ACETYLCYSTEINE 10% 30 ML VIAL IH SCH ×3 (11:35→21:34)
[2016-04-09] MEDS: GUAIFENESIN/DM 10 ML UDCUP PO PRN ×2 (11:40→20:47)
[2016-04-09] MEDS: PANTOPRAZOLE SODIUM 40 MG TAB PO SCH (16:24)
[2016-04-09] MEDS: LOPERAMIDE HCL 2 MG CAP PO PRN (16:24)
[2016-04-09] MEDS: MONTELUKAST SODIUM 10 MG TAB PO SCH (18:00)
[2016-04-09] MEDS: ATORVASTATIN CALCIUM 10 MG TAB PO SCH (20:47)
[2016-04-10] MEDS: LEVOTHYROXINE 100 MCG TAB PO SCH (05:09)
[2016-04-10] MEDS: HYDROCODONE/APAP 5/325 TAB PO PRN (05:09)
[2016-04-10] MEDS: GUAIFENESIN/DM 10 ML UDCUP PO PRN ×2 (05:10→19:49)
[2016-04-10] MEDS: ALBUTEROL 3 ML DEYVIAL IH SCH ×4 (05:29→20:56)
[2016-04-10] MEDS: ACETYLCYSTEINE 10% 30 ML VIAL IH SCH ×3 (05:29→15:37)
[2016-04-10 05:37] LABS: ABSOLUTE NRBC COUNT 0.04 10^3/uL (0-0.01); ADD DIFF? YES; ADD MORPH? NO; ATYPICAL LYMPHOCYTE FLAG 40 (0-99); FRAGMENT RBC FLAG 20 (0-99); HEMATOCRIT 27.6 % (38.0-47.0); HEMOGLOBIN 8.3 g/dL (12.6-16.3); LEFT SHIFT FLG 20 (0-99); LIPEMIA HEMOLYSIS FLAG 80 (0-99); MEAN CELL HEMOGLOBIN 28.5 pg (27.9-34.1); MEAN CELL HEMOGLOBIN CONCENTR. 30.1 g/dL (32.4-36.7); MEAN CELL VOLUME 94.8 fL (81.5-99.8); MEAN PLATELET VOLUME 9.6 fL (8.7-11.7); NRBC-AUTO% 0.1 % (0.0-0.2); PLATELET CLUMPS FLAG 0 (0-99); PLATELET COUNT 143 10^3/uL (150-400); RED BLOOD CELL COUNT 2.91 10^6/uL (4.18-5.33); RED CELL DISTRIBUTION WIDTH 19.6 % (11.5-15.2)
[2016-04-10 05:44] LABS: ADD SCAN? NO
[2016-04-10 05:51] LABS: ANION GAP 11 mEq/L (8-16); CALCIUM 8.7 mg/dL (8.5-10.4); CARBON DIOXIDE 27 mEq/l (22-31); CHLORIDE 105 mEq/L (97-110); CREATININE 0.8 mg/dL (0.6-1.0); GLOMERULAR FILTRATION RATE > 60; GLUCOSE 76 mg/dL (70-100); POTASSIUM 3.8 mEq/L (3.5-5.2); SODIUM 143 mEq/L (134-144)
[2016-04-10 07:02] LABS: ELLIPTOCYTES 1+
[2016-04-10 07:03] LABS: HYPOCHROMIA 1+
[2016-04-10 07:04] LABS: GIANT PLATELETS PRESENT; LARGE PLATELETS PRESENT; PLATELET ESTIMATE ADEQUATE (ADEQ)
[2016-04-10 07:05] LABS: MACROCYTES 1+
[2016-04-10] MEDS: LOSARTAN/HCTZ 50/12.5 1 TAB PO SCH (09:49)
[2016-04-10] MEDS: ENOXAPARIN 40 MG/0.4 ML SYR SC SCH (09:49)
[2016-04-10] MEDS: LIOTHYRONINE SODIUM 5 MCG TAB PO SCH (09:50)
[2016-04-10] MEDS: CYANO/VITAMIN B12 1000 MCG TAB PO SCH (09:50)
[2016-04-10] MEDS: CHOLECALCIFEROL VIT D3 1,000 UNITS TAB PO SCH (09:50)
[2016-04-10] MEDS: predniSONE 20 MG TAB PO SCH (09:50)
[2016-04-10] MEDS: OSELTAMIVIR PHOSPHATE 75 MG CAP PO SCH ×2 (09:50→18:19)
[2016-04-10] MEDS: AZITHROMYCIN 250 MG TAB PO SCH (09:50)
[2016-04-10] MEDS: FOLIC ACID 1 MG TAB PO SCH ×2 (09:50→20:03)
[2016-04-10] MEDS: SERTRALINE HCL 100 MG TAB PO SCH (09:50)
[2016-04-10] MEDS: ASPIRIN EC 81 MG TAB PO SCH (09:50)
[2016-04-10] MEDS: FLUTICASONE NASAL 120 SPRAYS/16 GM MDI EACHNARE SCH ×2 (09:54→20:03)
[2016-04-10] MEDS: [UNRECOGNIZED DRUG - OTHER] TP SCH (09:55)
[2016-04-10] MEDS: TRETINOIN TP SCH (09:55)
--- NOTE | 2016-04-10 11:01 | HOSPPROG ---
Hospitalist Progress Note Assessment/Plan: 66-year-old female PMH RAD, PE approximately 6 years ago after a foot surgery, CLL, presented to emergency room on 04/02 with complaints of shortness of breath , possible fever. Found to have hypoxia on RA, wheezing, positive flu. Assessment/Plan: # influenza A/possible bacterial pna - cont tamiflu/azith - will extend tamiflu course in setting of immunocompromise -pt feels more breathlessness/hypoxia -have asked Dr. Recinos to visit with her # RAD/bronchitis - pred/nebs/singulair -added Mucomyst for productive cough # panic attack - d/t resp distress and steroids - ativan prn # sepsis d/t above - no pressors/IVF needed # acute resp failure d/t above - using O2 more so today and yesterday due to hypoxia # CLL - has oncologist in [place]; not currently treated but planned to begin soon - WBC about at her reported baseline # htn: losartan/hctz #. diarrhea: C diff negative given Imodium for prn use # anemia/thrombocytopenia: stable; unknown baseline - following # pulm nodule - outpatient f/u # depression: zoloft # FCFT # lovenox Subjective: Reports feeling worse over the past couple of days. Objective: Vital Signs Temp Pulse Resp BP Pulse Ox 97.9 F 70 18 141/74 H 96 04/10/16 07:55 04/10/16 07:55 04/10/16 07:55 04/10/16 07:55 04/10/16 07:55 Laboratory Results 04/10/16 05:03 04/10/16 05:03 - Physical Exam Constitutional: no apparent distress, appears nourished Eyes: PERRL Ears, Nose, Mouth, Throat: moist mucous membranes Cardiovascular: regular rate and rhythym, no murmur, rub, or gallop Respiratory: reduced air movement, expiratory wheeze, inspiratory crackles, bronchial breath sounds Skin: warm, normal color Neurologic: AAOx3 Psychiatric: interacting appropriately, not anxious ICD10 Worksheet Patient Problems: Problems Problem Status Diagnosed Exacerbation of asthma Acute Hypoxemia Acute Influenza Acute
--- NOTE | 2016-04-10 12:42 | DX ---
PA and lateral chest. April 10, 2016. Clinical History: Worsening dyspnea. Comparison Study: April 04, 2016.. Findings: Interstitial infiltrates are present in the mid to lower lungs bilaterally, compatible with acute pneumonitis, potentially viral in origin. No pleural effusion. Heart size is normal.. Visualized osseous structures appear normal. Impression: Increasing bilateral lower lobe interstitial infiltrates from prior examination..
--- NOTE | 2016-04-10 12:59 | SOAPPROG ---
SOAP Progress Note Assessment/Plan: Assessment/Plan: * Influenza A-cont tamiflu * RAD/Asthma-still on O2. Breathless with any exertion. CXR okay -cont nebs and steroids -add advair 500/50 * H/O PE * Ambulate in halls Subjective: Comfortable when at rest Objective: Vital Signs Temp Pulse Resp BP Pulse Ox 36.6 C 70 18 141/74 H 96 04/10/16 07:55 04/10/16 07:55 04/10/16 07:55 04/10/16 07:55 04/10/16 07:55 Laboratory Results 04/10/16 05:03 04/10/16 05:03 Physical Exam - Physical Exam General Appearance: alert, no apparent distress EENT: PERRL/EOMI, normal ENT inspection, pharynx normal, TMs normal Neck: non-tender, full range of motion, supple, normal inspection Respiratory: prolonged expiration, No respiratory distress, No wheezing Cardiac/Chest: normal peripheral pulses, regular rate, rhythm Peripheral Pulses: 2+: carotid (R), carotid (L), femoral (R), femoral (L), dorsalis-pedis (R), dorsalis-pedis (L) Abdomen: normal bowel sounds, non-tender, soft Pelvic Exam: deferred Skin: normal color, warm/dry Extremities: normal range of motion, non-tender, normal inspection, normal capillary refill Neuro/Psych: no motor/sensory deficits, alert, normal mood/affect, oriented x 3 ICD10 Worksheet Patient Problems: Problems Problem Status Diagnosed Exacerbation of asthma Acute Hypoxemia Acute Influenza Acute
[2016-04-10] MEDS: LOPERAMIDE HCL 2 MG CAP PO PRN (13:57)
[2016-04-10] MEDS: FLUTICASONE/SALMETER 500/50MCG DISKUS IH SCH ×2 (14:13→16:14)
[2016-04-10] MEDS: MONTELUKAST SODIUM 10 MG TAB PO SCH (18:19)
[2016-04-10] MEDS: PANTOPRAZOLE SODIUM 40 MG TAB PO SCH (18:19)
[2016-04-10] MEDS: ATORVASTATIN CALCIUM 10 MG TAB PO SCH (20:03)
[2016-04-11] MEDS: ACETYLCYSTEINE 10% 30 ML VIAL IH SCH ×3 (00:28→14:36)
[2016-04-11] MEDS: ALBUTEROL 3 ML DEYVIAL IH SCH ×2 (05:17→11:12)
[2016-04-11] MEDS: LEVOTHYROXINE 100 MCG TAB PO SCH (05:30)
[2016-04-11] MEDS: HYDROCODONE/APAP 5/325 TAB PO PRN (05:30)
[2016-04-11] MEDS: ONDANSETRON DISINTEGRATING 4 MG TAB PO PRN (05:33)
[2016-04-11 07:30] VITALS: BP 135/69; TEMP 97.6
[2016-04-11] MEDS: FLUTICASONE/SALMETER 500/50MCG DISKUS IH SCH (08:44)
[2016-04-11] MEDS: FLUTICASONE NASAL 120 SPRAYS/16 GM MDI EACHNARE SCH (09:05)
[2016-04-11] MEDS: ENOXAPARIN 40 MG/0.4 ML SYR SC SCH (09:25)
[2016-04-11] MEDS: OSELTAMIVIR PHOSPHATE 75 MG CAP PO SCH (09:26)
[2016-04-11] MEDS: SERTRALINE HCL 100 MG TAB PO SCH (09:27)
[2016-04-11] MEDS: LIOTHYRONINE SODIUM 5 MCG TAB PO SCH (09:27)
[2016-04-11] MEDS: ASPIRIN EC 81 MG TAB PO SCH (09:28)
[2016-04-11] MEDS: AZITHROMYCIN 250 MG TAB PO SCH (09:35)
[2016-04-11] MEDS: predniSONE 20 MG TAB PO SCH (09:35)
[2016-04-11] MEDS: LOSARTAN/HCTZ 50/12.5 1 TAB PO SCH (09:36)
[2016-04-11] MEDS: CYANO/VITAMIN B12 1000 MCG TAB PO SCH (10:07)
[2016-04-11] MEDS: CHOLECALCIFEROL VIT D3 1,000 UNITS TAB PO SCH (10:07)
[2016-04-11] MEDS: FOLIC ACID 1 MG TAB PO SCH (10:07)
[2016-04-11] MEDS: TRETINOIN TP SCH (10:14)
[2016-04-11] MEDS: [UNRECOGNIZED DRUG - OTHER] TP SCH (10:14)
[2016-04-11 11:23] VITALS: PULSE 76; RESP 16; O2SAT 94
[2016-04-11] MEDS ORDERED: OSELTAMIVIR PHOSPHATE 75 MG CAP PO ONE (12:00)
--- NOTE | 2016-04-11 13:34 | SOAPPROG ---
SOAP Progress Note Assessment/Plan: Assessment/Plan: * Influenza A-cont tamiflu * RAD/Asthma-off O2. Much improved -continue advair -taper steroids over 2 weeks * H/O PE * okay for home Subjective: Looks and feels much better Objective: Vital Signs Temp Pulse Resp BP Pulse Ox 36.4 C 76 16 135/69 H 94 04/11/16 07:27 04/11/16 11:15 04/11/16 11:15 04/11/16 07:27 04/11/16 11:15 Laboratory Results 04/10/16 05:03 04/10/16 05:03 04/10/16 04/11/16 04/12/16 05:59 05:59 05:59 Intake Total 1000 500 Balance 1000 500 Physical Exam - Physical Exam General Appearance: alert, no apparent distress EENT: PERRL/EOMI, normal ENT inspection, pharynx normal, TMs normal Neck: non-tender, full range of motion, supple, normal inspection Respiratory: decreased breath sounds, No respiratory distress, No stridor, No wheezing Cardiac/Chest: normal peripheral pulses, regular rate, rhythm Peripheral Pulses: 2+: carotid (R), carotid (L), femoral (R), femoral (L), dorsalis-pedis (R), dorsalis-pedis (L) Abdomen: normal bowel sounds, non-tender, soft Pelvic Exam: deferred Rectal: deferred Skin: normal color, warm/dry Extremities: normal range of motion, non-tender, normal inspection, normal capillary refill Neuro/Psych: no motor/sensory deficits, alert, normal mood/affect, oriented x 3 ICD10 Worksheet Patient Problems: Problems Problem Status Diagnosed Exacerbation of asthma Acute Hypoxemia Acute Influenza Acute
--- NOTE | 2016-04-11 22:37 | GDS ---
[f rep st] DISCHARGE SUMMARY DISCHARGE DIAGNOSES: 1. Influenza A. 2. Reactive airway disease with asthma. 3. Panic attacks. 4. Sepsis. 5. Acute respiratory failure. 6. History of chronic lymphocytic leukemia. 7. Hypertension. 8. Diarrhea. 9. Anemia with thrombocytopenia. 10. Pulmonary nodule. 11. Depression. CONSULTATIONS: Pulmonology. STUDIES AND PROCEDURES: 1. CT angiogram of the chest. 2. Repeat chest x-rays. PHYSICAL EXAM: GENERAL: The patient is alert and oriented. VITAL SIGNS: Afebrile at 36.4, pulse i s 79, respiratory rate is 18, blood pressure is 135/69, she is saturating 94% on room air. I have seen and evaluated the patient on the day of discharge. HOSPITAL COURSE: The patient is a 66-year-old female who is visiting from [place]. She presented to [facility] emergency room with complaints of shortness of breath and fever. She was noted to have: 1. Influenza A with possible bacterial pneumonia. During this hospitalization, she was treated with Tamiflu, as well as azithromycin. Her condition has improved. She received an extended dose of [place] iflu in the setting of immunocompromise. She is feeling significantly better. She was consulted on by Pulmonology during this hospitalization. She will follow up in the outpatient setting with her [facility] physician. 2. Bronchitis with reactive airway disease. She has responded to Mucomyst, as well as prednisone, a nd nebulizer treatments. She will continue these in the outpatient setting. 3. Panic attack. This was likely in the setting of steroid use. The patient is stable and is treat ed with Ativan. 4. Sepsis. This has resolved. 5. Acute respiratory failure. This has resolved. She is saturating appropriately on room air. 6. History of CLL. She will return to her oncologist in [place] and plans to begin treatment soon. 7. Hypertension. This is well managed with medications. 8. Diarrhea. This has resolved. 9. Anemia with thrombocytopenia. This is multifactorial and appears to be stable. 10. Pulmonary nodule. The patient has been educated to follow up in the outpatient setting regardin g this pulmonary nodule. She does understand the significance of this and will follow with her [facility] oncologist. DISPOSITION: The patient will be discharged to a hotel this evening with her with plans to r eturn to [place] via motor vehicle on 04/12/2016. PENDING STUDIES: There are none. FOLLOWUP: Followup will be with her primary oncologist in [place], as well as her primary care yrn escalona. DISCHARGE INSTRUCTIONS: I have instructed the patient as well as her to stop periodically an d seek medical attention if needed. They are both in agreement with this plan. DISCHARGE MEDICATIONS: I have provided the patient a prescription for [place], Zofran, Advair, Ativan, Zithromax, prednisone. TIME SPENT: I have spent greater than 35 minutes in the care, coordination, and management of this p atient's disposition. /[id number]/MODL
== END 2016-04-11 14:48 | disposition home or self-care (01) | DRG 871 ==
LOC: F1N 09:28 → OBSVTOIN 04-03 15:05 → F2N 04-04 06:15 → F3E 04-06 13:05
PROVIDERS: ADMIT Internal Medicine Pulmonary Disease; ATTEND Internal Medicine Pulmonary Disease
DX: A41.9 Sepsis, unspecified organism (principal); J11.00 Influenza due to unidentified influenza virus with unspecified type of pneumonia; J96.00 Acute respiratory failure, unspecified whether with hypoxia or hypercapnia; C91.11 Chronic lymphocytic leukemia of B-cell type in remission; J45.909 Unspecified asthma, uncomplicated; F41.0 Panic disorder [episodic paroxysmal anxiety]; I10 Essential (primary) hypertension; R19.7 Diarrhea, unspecified; R91.1 Solitary pulmonary nodule; F32.9 Major depressive disorder, single episode, unspecified; D69.6 Thrombocytopenia, unspecified; D64.9 Anemia, unspecified; Z88.0 Allergy status to penicillin; Z87.891 Personal history of nicotine dependence; Z86.711 Personal history of pulmonary embolism
CPT/HCPCS: G0378; J0456; J1650; J1885; J2550